=== PATIENT | female | born 1970 | race Caucasian/White ===

== ENCOUNTER 2017-12-16 15:58 | Emergency (ER) | payer SELFPAY ==
--- NOTE | 2017-12-16 17:56 | RAD ---
THREE VIEWS RIGHT FOOT: 12/16/17 HISTORY: Patient stubbed toe one month ago and patient has pain in arch of foot and at heel. FINDINGS: The Lisfranc joint is normally aligned. There is a obliquely oriented fracture involving the proximal phalanx of the right fourth toe. Mild separation of fracture fragments. No additional fracture is se en. Lisfranc joint is normally aligned. Tiny plantar calcaneal enthesophyte is identified. IMPRESSION: Fracture proximal phalanx right fourth toe which may be minimally comminuted. POS: [facility]OT
== END 2017-12-16 17:10 | disposition home or self-care (01) ==
LOC: ERS 15:58
DX: S92.511A Displaced fracture of proximal phalanx of right lesser toe(s), initial encounter for closed fracture (principal); I10 Essential (primary) hypertension; F31.9 Bipolar disorder, unspecified; F41.9 Anxiety disorder, unspecified; F17.210 Nicotine dependence, cigarettes, uncomplicated; W22.8XXA Striking against or struck by other objects, initial encounter